=== PATIENT | male | born 1950 | race Caucasian/White ===

== ENCOUNTER → 2023-01-02 10:17 | Outpatient (CLI) | payer MEDICARE, SELFPAY ==
--- NOTE | ~2023-01-02 | XR_ITS ---
Left foot Technique: AP, oblique, and lateral views were obtained. Clinical History: Pain Findings: No acute fracture or dislocation is seen. Old, healed fracture deformity of the second meta tarsal noted. There is advanced osteoarthritic change at the first MTP joint. Soft tissues are unrema rkable. Impression: Advanced osteoarthritic change at the first MTP joint. Old, healed fracture deformity of the second metatarsal shaft. Reviewed, dictated and finalized at location . Impression: Advanced osteoarthritic change at the first MTP joint. Old, healed fracture deformity of the second metatarsal shaft.
== END ==
PROVIDERS: PCP Family Medicine; Visit Provider Family Medicine
DX: M19.072 Primary osteoarthritis, left ankle and foot (principal); M79.672 Pain in left foot
CPT/HCPCS: 73630